=== PATIENT | male | born 1975 | race African-American/Black ===

== ENCOUNTER 2019-06-10 18:26 | Emergency (ER) | payer MEDICARE, MEDICAID ==
[~2019-06-10] VITALS: Ht 177.8 cm; Wt 86.0 kg
[2019-06-10 21:24] VITALS: BP 119/75
== END 2019-06-10 21:24 | disposition home or self-care (01) ==
LOC: ER 18:26
DX: S63.501A Unspecified sprain of right wrist, initial encounter (principal); E11.9 Type 2 diabetes mellitus without complications; V49.88XA Car occupant (driver) (passenger) injured in other specified transport accidents, initial encounter; Y93.89 Activity, other specified; Y92.89 Other specified places as the place of occurrence of the external cause; Y99.8 Other external cause status
CPT/HCPCS: 99283